=== PATIENT | male | born 1975 | race Caucasian/White ===

== ENCOUNTER 2023-07-01 08:32 | Emergency (ER) | payer OTHER ==
[~2023-07-01] VITALS: Ht 167.6 cm; Wt 74.8 kg
[2023-07-01 08:34] VITALS: BP 145/94; PULSE 95; RESP 18; TEMP 98; O2SAT 100
[2023-07-01] MEDS ORDERED: ACETAMINOPHEN EXTRA STRENGTH 500 MG TAB PO ONE (09:35)
[2023-07-01] MEDS ORDERED: IBUPROFEN 600 MG TAB PO ONE (09:35)
[2023-07-01] MEDS ORDERED: ACET-10509 PO (10:22)
[2023-07-01 10:32] VITALS: BP 145/94; PULSE 95; RESP 18; TEMP 98; O2SAT 100
== END 2023-07-01 10:33 | disposition home or self-care (01) ==
LOC: MED 08:32
DX: S00.03XA Contusion of scalp, initial encounter (principal); V49.88XA Car occupant (driver) (passenger) injured in other specified transport accidents, initial encounter; Y93.89 Activity, other specified; Y92.89 Other specified places as the place of occurrence of the external cause; Y99.8 Other external cause status
CPT/HCPCS: 99283